=== PATIENT | female | born 1965 | race Two or more races ===

== ENCOUNTER → 2017-07-09 | Outpatient (CLI) | payer OTHER | LOC: EDBD → CIMAGING 14:39 | PROVIDERS: ATTEND Internal Medicine | DX: Z12.31 Encounter for screening mammogram for malignant neoplasm of breast (principal); N63 Unspecified lump in breast | CPT/HCPCS: G0202 ==

== ENCOUNTER → 2017-07-19 | Outpatient (CLI) | payer OTHER | LOC: CIMAGING 12:48 | PROVIDERS: ATTEND Internal Medicine | DX: Z12.39 Encounter for other screening for malignant neoplasm of breast (principal); R92.8 Other abnormal and inconclusive findings on diagnostic imaging of breast | CPT/HCPCS: G0206 ==